=== PATIENT | female | born 1975 | race Caucasian/White ===

== ENCOUNTER 2018-03-02 13:34 | Outpatient (CLI) | payer BC ==
--- NOTE | 2018-03-02 15:50 | RAD ---
THREE VIEWS OF THE RIGHT FOOT: 03/02/18 COMPARISON: None. HISTORY: Pain in the region of the third, fourth and fifth metatarsals for two weeks. 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 There is no displaced fracture or evidence of dislocation. No radiopaque foreign body or subcutaneous gas. There is enthesophyte formation at the insertion of the Achilles tendon and origin of the plant ar aponeurosis. There is degenerative change seen dorsally involving the talonavicular joint with koki albert osteophyte formation. IMPRESSION: Chronic appearing findings as described above. No acute fracture or dislocation seen. POS: [facility]
== END 2018-03-02 13:35 | disposition home or self-care (01) ==
LOC: SCSRAD 13:34
PROVIDERS: ATTEND Nurse Practitioner Family
DX: M79.671 Pain in right foot (principal)

== ENCOUNTER 2023-05-11 11:15 | Emergency (ER) | payer BC ==
[2023-05-11 11:56] LABS: Bacteria/HPF None Seen HPF (None Seen); Bilirubin Negative (Negative); Blood, Urine Negative (Negative); CAUTI Indications for Culture Pelvic or flank pain; Clarity Clear (Clear); Glucose, Urine (Dipstick) Normal (Negative); Ketone, Urine Negative (Negative); Leukocyte Negative Leu/uL (Negative); Nitrite Negative (Negative); Protein, Urine (Dipstick) Negative (Neg-Trace); RBC/HPF 0-3 HPF (0-3); Specific Gravity, Urine 1.009 (1.002-1.036); Squamous Epithelial 0-3 HPF (0-3); Urobilinogen Normal mg/dL (Less than 2); WBC/HPF 0-3 HPF (0-3)
[2023-05-11 11:58] LABS: Urine Culture Reflex No No
[2023-05-11 13:33] LABS: #Eosinphils 0.1 thou/uL (0.0-0.7); #Monocytes 0.6 thou/uL (0.11-0.59); #Neutrophils 3.3 thou/uL (1.40-6.50); %Basophils 0.5 % (0.0-1.0); %Eosinophils 1.2 % (0.0-10.0); %Lymphocytes 47.2 % (21.0-51.0); %Monocytes 7.7 % (0.0-10.0); %Neutrophils 43.3 % (42.0-75.0); Hematocrit 42.9 % (36.0-47.0); Hemoglobin 14.2 g/dL (12.0-16.0); Mean Corpuscular HGB CONC 33.1 g/dL (32.0-36.0); Mean Corpuscular Hemoglobin 33.2 pg (27.0-31.0); Mean Corpuscular Volume 100.2 fl (78.0-98.0); Mean Platelet Volume 10.9 fL (7.4-10.4); Platelet Count 227 10x3/uL (130-400); RBC Distribution Width 12.6 % (11.5-14.5); Red Blood Cell (RBC) Count 4.28 mill/uL (4.20-5.40); White Blood Cell (WBC) Count 7.6 10x3/uL (4.8-10.8)
[2023-05-11 13:57] LABS: ALT (SGPT) 72 U/L (8-55); AST (SGOT) 43 U/L (5-34); Albumin 4.4 g/dL (3.5-5.0); Alkaline Phosphatase 160 U/L (40-110); Anion Gap 12 mmol/L (10-20); BUN (Urea Nitrogen) 19 mg/dL (7.0-18.7); Bilirubin, Total 0.5 mg/dL (0.2-1.2); Calc. Creatinine Clearance 0 mL/min (70-130); Calcium 9.6 mg/dL (7.8-10.44); Carbon Dioxide 27 mmol/L (22-29); Chloride 106 mmol/L (98-107); Estimated GFR 108; Globulin 2.3 g/dL (2.4-3.5); Glucose 83 mg/dL (70-105); Lipase 21 U/L (8-78); Potassium 3.5 mmol/L (3.5-5.1); Protein, Total 6.7 g/dL (6.0-8.3); Sodium 141 mmol/L (136-145)
[2023-05-11] MEDS ORDERED: Ketorolac Tromethamine 30 MG/ML VIAL ONE (15:21)
== END 2023-05-11 15:35 | disposition home or self-care (01) ==
LOC: ERS 11:15
DX: R19.7 Diarrhea, unspecified (principal); I10 Essential (primary) hypertension; F17.210 Nicotine dependence, cigarettes, uncomplicated
CPT/HCPCS: 36415; 80053; 81001; 83690; 85025; 96372; 99284; J1885